=== PATIENT | male | born 1990 | race Caucasian/White ===

== ENCOUNTER 2023-11-11 17:15 | Emergency (ER) | payer BC ==
[~2023-11-11] VITALS: Ht 182.9 cm; Wt 158.3 kg
[2023-11-11 17:32] VITALS: BP_SYST 161; PULSE 119; RESP 18; TEMP 97.2; O2SAT 97
[2023-11-11 18:16] LABS: BASOPHILS % (AUTO) 0.3 % (0.0-2.0); EOSINOPHILS % (AUTO) 0.2 % (0.0-4.0); HEMATOCRIT 43.6 % (36-54); LYMPHOCYTES # (AUTO) 1.1 K/uL (1.0-5.5); LYMPHOCYTES % (AUTO) 12.6 % (20.5-51.5); MEAN CORPUSCULAR HEMOGLOBIN 28 pg (27-31); MEAN CORPUSCULAR HGB CONC 34 % (32-36); MEAN CORPUSCULAR VOLUME 82 fL (79.0-98.0); MONOCYTES # (AUTO) 0.5 K/uL (0.0-1.0); MONOCYTES % (AUTO) 5.8 % (1.7-9.3); NEUTROPHILS # (AUTO) 7.1 K/uL (1.8-7.7); NEUTROPHILS % (AUTO) 81.1 % (40.0-70.0); PLATELET COUNT (AUTO) 230 K/uL (130-430); RED BLOOD CELL COUNT(AUTO) 5.33 MIL/uL (4.2-6.2); RED CELL DISTRIBUTION WIDTH 13.8 % (9.0-15.0); WHITE BLOOD COUNT (AUTO) 8.8 K/uL (4.8-10.8)
[2023-11-11 18:33] LABS: ANION GAP 7 (5-15); CALCIUM 9.3 mg/dL (8.4-11.0); CARBON DIOXIDE 29 mmol/L (23-29); CHLORIDE 107 mmol/L (98-107); CREATININE 1.11 mg/dL (0.55-1.30); GFR AFRICAN AMERICAN 99 mL/min (>90); GLUCOSE 120 mg/dL (74-106); POTASSIUM 3.6 mmol/L (3.5-5.1); SODIUM SERUM 143 mmol/L (136-145); UREA NITROGEN, BLOOD 17 mg/dL (8-21)
[2023-11-11 18:34] LABS: GFR NON AFRICAN-AMERICAN 82 mL/min (>90)
[2023-11-11 18:39] VITALS: RESP 18; TEMP 97.2
[2023-11-11] MEDS: HYDROcodone/ACETAMIN 10-325 MG TAB PO ONE (21:25)
[2023-11-11] MEDS: NACL 0.9% 1,000 ML IV ONE (21:26)
[2023-11-11] MEDS ORDERED: HYDR-3927 PO (21:48)
[2023-11-11 23:16] VITALS: BP_SYST 150; PULSE 72; O2SAT 99
== END 2023-11-11 23:16 | disposition home or self-care (01) ==
LOC: SED 17:15
DX: I10 Essential (primary) hypertension (principal); K08.89 Other specified disorders of teeth and supporting structures; R00.2 Palpitations
CPT/HCPCS: 99285; 96360; 71045; 80048; 83880; 85025; 84484; 36415; 93005; J7030